=== PATIENT | male | born 1990 | race Caucasian/White ===

== ENCOUNTER 2022-10-23 12:05 | Emergency (ER) | payer OTHER, SELFPAY ==
[2022-10-23] VITALS (22 sets, daily range): BP systolic 132–152; BP diastolic 75–92; PULSE 104–118; RESP 14–18; TEMP 37.7; O2SAT 95–99; BMI 27.5
[2022-10-23 13:16] LABS: Appearance Urine Clear (Clear); Bilirubin Urine 1+ (Negative); Blood Urine Negative (Negative); Color Urine Yellow (Yellow); Glucose Urine Negative (Negative); Ketones Urine 2+ (Negative); Leukocyte Esterase Urine Negative (Negative); Nitrite Urine Negative (Negative); Protein Urine Negative (Negative); Specific Gravity Urine 1.015 (1.000-1.030); Urobilinogen Urine 0.2 (0.2-1.0); pH Urine 5.5 (5.0-8.5)
[2022-10-23 13:23] LABS: RBC Urine 0-2 (0-2); WBC Urine 0-2 (0-5)
[2022-10-23] MEDS: 0.9 % SODIUM CHLORIDE 1000 ml 1,000 ML IV (13:25)
[2022-10-23 13:30] LABS: Lactate* 1.1 mmol/L (0.5-1.9)
[2022-10-23 13:35] LABS: Basophils Percent Auto 0.1 % (0.0-3.0); Eosinophils Percent Auto 0.2 % (0.0-7.0); Hematocrit 45.3 % (37.0-53.0); Hemoglobin* 15.6 gm/dL (13.5-17.5); Immature Granulocytes Pct Auto 0.6 %; Lymphocytes Percent Auto 3.3 % (20-44); Mean Corpuscular HGB Conc 34 gm/dL (32-36); Mean Corpuscular Hemoglobin 29 pg (26-34); Mean Corpuscular Volume 85 fL (80-100); Monocytes Percent Auto 2.5 % (0.0-11.0); Neutrophils Percent Auto 93.3 % (42.0-72.0); Platelet Count* 282 K/uL (140-440); RDW Coefficient of Variation % 11.7 % (11.5-15.5); Red Blood Count 5.31 m/uL (4.30-5.90); White Blood Count* 11.88 K/uL (4.50-11.00)
[2022-10-23 13:39] LABS: Slide Review Reflex No
[2022-10-23 14:06] LABS: Chloride* 98 mmol/L (96-114); Sodium* 133 mmol/L (135-149)
[2022-10-23 14:07] LABS: Albumin* 4.5 g/dL (3.3-5.0)
[2022-10-23 14:09] LABS: Blood Urea Nitrogen* 15 mg/dL (5-24); Carbon Dioxide* 25 mmol/L (20-32); Creatinine* 0.9 mg/dL (0.5-1.5); Est. Creatinine Clearance* 99.58; Estimated Glomerular Filt Rate 117 ml/min
[2022-10-23 14:10] LABS: Alkaline Phosphatase* 109 U/L (40-150); Aspartate Amino Transferase* 36 U/L (12-35); Bilirubin Direct* 0.4 mg/dL (0.0-0.5); Bilirubin Total* 0.7 mg/dL (0.1-1.5); Calcium* 9.1 mg/dL (8.4-10.6); Glucose* 92 mg/dL (60-115); Total Protein* 8.3 g/dL (6.0-8.3)
[2022-10-23 14:11] LABS: Alanine Aminotransferase* 52 U/L (4-50)
[2022-10-23 14:12] LABS: C Reactive Protein* 5.1 mg/dL (0.5-1.0)
[2022-10-23 14:18] LABS: SARS PCR* Negative SARS-CoV-2 (Negative)
--- NOTE | 2022-10-23 14:24 | CRLHL7_ITS ---
For Patients: As a result of the Century Cures Act, medical imaging exams and procedure reports are released immediately into your electronic medical record. You may view this report before your referring provider. If you have questions, please contact your health care provider. INDICATION: Pelvic pain and fever after vasectomy. TECHNIQUE: Axial images were obtained from the diaphragm to the pubic symphysis. Reformats were obtained in the coronal and sagittal plane. IV Contrast: 79 cc Isovue 370 Oral Contrast: None COMPARISON: None. FINDINGS: Lower chest: Basilar discoid atelectasis. Liver: Unremarkable. Normal in size and attenuation. No masses. Gallbladder and bile ducts: Unremarkable. No stones or inflammation. No biliary dilatation. Spleen: Unremarkable. Normal in size without mass. Pancreas: Unremarkable. No mass or inflammation. Adrenal glands: Unremarkable. No nodules. Kidneys: Symmetric renal enhancement without hydronephrosis. 14 millimeter cyst at the upper pole of the left kidney with a subcentimeter hypodense lesion at the mid left kidney which is too small for characterization. Vasculature: Unremarkable. GI tract: Unremarkable. No dilated bowel or focal inflammation. Unremarkable appendix. Pelvis: Unremarkable. Bones: Unremarkable for age. IMPRESSION: Unremarkable abdomen and pelvis CT. No findings to explain the patient`s pain. Please note that all CT scans at this facility use dose modulation, iterative reconstruction, and/or weight-based dosing when appropriate to reduce radiation dose to as low as reasonably achievable. Dictated by Kenneth Dawson MD @ 10/23/2022 3:56:19 PM (Electronically Signed)
--- NOTE | 2022-10-23 14:25 | CRLHL7_ITS ---
For Patients: As a result of the Cures Act, medical imaging exams and procedure reports are released immediately into your electronic medical record. You may view this report before your referring provider. If you have questions, please contact your health care provider. INDICATION: FEVER TECHNIQUE: Chest 2 views. COMPARISON: None. FINDINGS: Cardiovascular and mediastinum: Heart size and vasculature are normal in caliber and appearance. Mediastinum is within normal limits. Lungs and pleural spaces: Lungs are clear. No sign of infiltrate or mass. No sign of pleural effusion. No pneumothorax. Bones and soft tissues: No significant findings. IMPRESSION: Unremarkable chest. Dictated by: Kalyan Sal MD @ 10/23/2022 15:25:43 (Electronically Signed)
--- NOTE | 2022-10-23 15:41 | ED.GENADULT ---
HPI - General Adult General Date Seen: 10/23/22 Chief complaint: Fever Stated complaint: procedure 2 weeks ago - fever since then Time Seen by Provider: 10/23/22 12:37 Source: patient Mode of arrival: ambulatory Limitations: no limitations History of Present Illness HPI narrative: Patient is a 32-year-old male who underwent vasectomy 2 weeks ago on a Sunday. He says he had a little bit of a cough prior to having the procedure. A couple days after the procedure he developed fever which progressed to shaking chills within a couple days after that. He says he will get better for a day or so and then he will again developed fevers. He has had some suprapubic pain with radiation to the back. He has a little bit of dysuria as well. He does say that the surgical sites look fine and he has not had any testicular pain or swelling. He has not had any nausea or vomiting. The cough itself seems to be getting better. He has not had shortness of breath. Just continues to feel generally poorly. He has had to leave work several times as every time he goes back to work he seems to have regression back to fever and chills. His health is otherwise generally good. He quit smoking a couple of years ago, denies significant alcohol use or other substance use. Related Data Home Medications Medication Instructions Recorded Confirmed No Known Home Medications 10/23/22 10/23/22 Allergies Allergy/AdvReac Type Severity Reaction Status Date / Time No Known Drug Allergies Allergy Verified 10/23/22 14:50 Review of Systems Status of ROS: Reports: 10 or more systems reviewed and unremarkable except as noted in History and below PFSH PFS Social History Smoking Status: Former smoker Do you use any of these nicotine containing products: None Second hand tobacco smoke exposure: No How often do you have a drink containing alcohol: 2-3 times a week How many standard drinks containing alcohol do you have on a typical day: 7 to 9 How often do you have six or more drinks on one occasion: Weekly AUDIT-C Alcohol total score: 9 Non-prescribed substance use: marijuana (any form) Exam Narrative: Exam Narrative: Vital signs as noted above. In general, an alert, nontoxic, fatigued looking male. Head: Normocephalic, atraumatic. Eyes: Pupils are equal reactive. Extraocular movements are full. Conjunctivae are normal. ENT: Mucous membranes are moist. Throat is normal. Neck: Supple without lymphadenopathy. Heart: Tachycardic and regular. No murmur. Lungs: Clear bilaterally. No increased work of breathing, crackles or wheezes. No CVA tenderness. Abdomen: Soft, nondistended, mild suprapubic tenderness without rebound guarding or rigidity. : Incisions healed, no testicular tenderness, edema, erythema. Extremities: Well perfused. No edema. No calf tenderness. Pulses intact. Neurologic: Patient is alert and oriented to person and place. Speech is fluent. Face is symmetric. Moves all extremities equally. Affect: Normal. Skin: Warm and dry. Well perfused. Const: Vital Signs, click to edit/add: Vital Signs - 24 hr 10/23/22 12:13 10/23/22 13:12 10/23/22 13:45 Temperature 99.9 F H Pulse Rate 113 H Pulse Rate [Right Pulse Oximeter] 118 H Respiratory Rate 18 14 Blood Pressure Blood Pressure [Le ft Arm] 150/92 H Blood Pressure [Ri ght Upper Arm] 141/77 H Pulse Oximetry 95 97 99 Oxygen Delivery Me thod Room Air Room Air 10/23/22 13:46 10/23/22 14:00 10/23/22 14:02 Temperature Pulse Rate 115 H 110 H 111 H Pulse Rate [Right Pulse Oximeter] Respiratory Rate Blood Pressure 142/78 H 152/75 H Blood Pressure [Le ft Arm] Blood Pressure [Ri ght Upper Arm] Pulse Oximetry 98 97 97 Oxygen Delivery Me thod 10/23/22 14:15 10/23/22 14:30 10/23/22 14:32 Temperature Pulse Rate 115 H 117 H 112 H Pulse Rate [Right Pulse Oximeter] Respiratory Rate Blood Pressure 140/77 H Blood Pressure [Le ft Arm] Blood Pressure [Ri ght Upper Arm] Pulse Oximetry 95 96 96 Oxygen Delivery Me thod 10/23/22 15:13 10/23/22 15:15 10/23/22 15:18 Temperature Pulse Rate 113 H 111 H 112 H Pulse Rate [Right Pulse Oximeter] Respiratory Rate Blood Pressure 150/92 H Blood Pressure [Le ft Arm] Blood Pressure [Ri ght Upper Arm] Pulse Oximetry 97 97 97 Oxygen Delivery Me thod Documenting provider has reviewed patient's vital signs: yes Course Course Hospital Course: Following initial evaluation, patient did have labs drawn including blood culture, urine was obtained, an IV was established and he was given a L of normal saline. He was ultimately given a g of Tylenol as well. His labs overall were not terribly illuminating, his white blood cell count was mildly elevated at 11.9, his CRP was mildly elevated at 5, but urinalysis was completely normal. LFTs showed mildly elevated transaminases, nonspecific, other LFTs were normal. Lactate was normal at 1.1. COVID was negative. Metabolic panel was unrevealing. I suspected he might have a urinary tract infection but this ultimately did not proved to be the case as his urine is really entirely normal. There does not appear to be anything abnormal about the surgical site itself, and he does not have any abnormalities on exam, but given that he had some lower abdominal discomfort and symptoms of malaise and reported fevers have been ongoing for a couple weeks now, elected to do a CT scan of the abdomen with contrast, and I also did a chest x-ray. I did not see any significant findings on his abdominal CT or his chest x-ray, and in fact both are read as negative by Radiology as well. I have discussed with him at this point that I am not able to determine an exact cause for his symptoms. This may be because they are viral and an exact definitive cause is not evident at this time, or there may be an alternative causes which may require further investigation. He is nontoxic in appearance, vital signs are improved with fluids, and I think discharge is reasonable. I have suggested that he take a couple of days off of work, continue with hydration at home, ibuprofen or Tylenol as needed and we have made him a follow-up appointment in clinic in a couple of days for recheck. If at any point he feels he is significantly worsening he should come back to the emergency department. Discussed that this may be a dynamic process and that further evaluation may be necessary to determine a diagnosis. At this point there is no evidence of a clear postoperative infection, abscess, pneumonia, urinary tract infection, or other bacterial process. Vital Signs Vital signs: Initial Vital Signs Temperature 99.9 F H 10/23/22 12:13 Temperature Source Oral 10/23/22 12:13 Pulse Rate 118 H 10/23/22 12:13 Respiratory Rate 18 10/23/22 12:13 Blood Pressure 141/77 H 10/23/22 12:13 Blood Pressure Mean 98 10/23/22 12:13 Blood Pressure Position Sitting 10/23/22 12:13 Pulse Oximetry 95 10/23/22 12:13 Oxygen Delivery Method 10/23/22 12:13 Vital Signs Temperature 99.9 F H 10/23/22 12:13 Pulse Rate 118 H 10/23/22 12:13 Respiratory Rate 18 10/23/22 12:13 Blood Pressure 141/77 H 10/23/22 12:13 Pulse Oximetry 95 10/23/22 12:13 Oxygen Delivery Method 10/23/22 12:13 Temperature 99.9 F H 10/23/22 12:13 Pulse Rate 108 H 10/23/22 16:45 Respiratory Rate 14 10/23/22 13:12 Blood Pressure 132/87 10/23/22 16:31 Pulse Oximetry 96 10/23/22 16:45 Oxygen Delivery Method 10/23/22 13:12 Medical Decision Making Lab Data Labs: Lab Results 10/23/22 10/23/22 10/23/22 Range/Units 13:10 13:10 13:18 WBC 11.88 H (4.50-11.00) K/uL RBC 5.31 (4.30-5.90) m/uL Hgb 15.6 (13.5-17.5) gm/dL Hct 45.3 (37.0-53.0) % MCV 85 (80-100) fL MCH 29 (26-34) pg MCHC 34 (32-36) gm/dL RDW Coeff of [place]aked[place] 11.7 (11.5-15.5) % Plt Count 282 (140-440) K/uL Neut % (Auto) 93.3 H (42.0-72.0) % Lymph % (Auto) 3.3 L (20-44) % Pratt % (Auto) 2.5 (0.0-11.0) % Eos % (Auto) 0.2 (0.0-7.0) % Baso % (Auto) 0.1 (0.0-3.0) % Neut # (Auto) 11.10 H (1.7-7.0) K/uL Lymph # (Auto) 0.40 L (0.90-2.90) K/uL Pratt # (Auto) 0.30 (0.00-0.90) K/UL Eos # (Auto) 0.00 (0.00-0.50) K/uL Baso # (Auto) 0.00 (0.00-0.30) K/uL Sodium (135-149) mmol/L Potassium (3.6-5.1) mmol/L Chloride (96-114) mmol/L Carbon Dioxide (20-32) mmol/L BUN (5-24) mg/dL Creatinine (0.5-1.5) mg/dL Estimated Creat Clear Estimated GFR ml/min Glucose (60-115) mg/dL Lactate (0.5-1.9) mmol/L Calcium (8.4-10.6) mg/dL Total Bilirubin (0.1-1.5) mg/dL Direct Bilirubin (0.0-0.5) mg/dL AST (12-35) U/L ALT (4-50) U/L Alkaline Phosphatase (40-150) U/L C-Reactive Protein (0.5-1.0) mg/dL Total Protein (6.0-8.3) g/dL Albumin (3.3-5.0) g/dL Urine Color Yellow (Yellow) Urine Appearance Clear (Clear) Urine pH 5.5 (5.0-8.5) Ur Specific [place] 1.015 (1.000-1.030) Urine Protein Negative (Negative) Urine Glucose (UA) Negative (Negative) Urine Ketones 2+ A (Negative) Urine Blood Negative (Negative) Urine Nitrite Negative (Negative) Urine Bilirubin 1+ A (Negative) Urine Urobilinogen 0.2 (0.2-1.0) Ur Leukocyte Esterase Negative (Negative) Urine RBC 0-2 (0-2) Urine WBC 0-2 (0-5) Ur Squamous Epith Cells None (None-Few) Urine Bacteria None (None) SARS-CoV-2 (PCR) Negative SARS-CoV-2 (Negative) 10/23/22 10/23/22 10/23/22 Range/Units 13:18 13:18 13:18 WBC (4.50-11.00) K/uL RBC (4.30-5.90) m/uL Hgb (13.5-17.5) gm/dL Hct (37.0-53.0) % MCV (80-100) fL MCH (26-34) pg MCHC (32-36) gm/dL RDW Coeff of [place]aked[place] (11.5-15.5) % Plt Count (140-440) K/uL Neut % (Auto) (42.0-72.0) % Lymph % (Auto) (20-44) % Pratt % (Auto) (0.0-11.0) % Eos % (Auto) (0.0-7.0) % Baso % (Auto) (0.0-3.0) % Neut # (Auto) (1.7-7.0) K/uL Lymph # (Auto) (0.90-2.90) K/uL Pratt # (Auto) (0.00-0.90) K/UL Eos # (Auto) (0.00-0.50) K/uL Baso # (Auto) (0.00-0.30) K/uL Sodium 133 L (135-149) mmol/L Potassium 4.0 (3.6-5.1) mmol/L Chloride 98 (96-114) mmol/L Carbon Dioxide 25 (20-32) mmol/L BUN 15 (5-24) mg/dL Creatinine 0.9 (0.5-1.5) mg/dL Estimated Creat Clear 99.58 Estimated GFR 117 ml/min Glucose 92 (60-115) mg/dL Lactate 1.1 (0.5-1.9) mmol/L Calcium 9.1 (8.4-10.6) mg/dL Total Bilirubin 0.7 (0.1-1.5) mg/dL Direct Bilirubin 0.4 (0.0-0.5) mg/dL AST 36 H (12-35) U/L ALT 52 H (4-50) U/L Alkaline Phosphatase 109 (40-150) U/L C-Reactive Protein 5.1 H (0.5-1.0) mg/dL Total Protein 8.3 (6.0-8.3) g/dL Albumin 4.5 (3.3-5.0) g/dL Urine Color (Yellow) Urine Appearance (Clear) Urine pH (5.0-8.5) Ur Specific [place] (1.000-1.030) Urine Protein (Negative) Urine Glucose (UA) (Negative) Urine Ketones (Negative) Urine Blood (Negative) Urine Nitrite (Negative) Urine Bilirubin (Negative) Urine Urobilinogen (0.2-1.0) Ur Leukocyte Esterase (Negative) Urine RBC (0-2) Urine WBC (0-5) Ur Squamous Epith Cells (None-Few) Urine Bacteria (None) SARS-CoV-2 (PCR) (Negative) Discharge Plan Discharge Clinical Impression: Fever of unknown origin Patient Disposition: Home, Self-Care Condition: Improved Instructions: Fever in Adults (ED) Additional Instructions: Your workup here today does not reveal an obvious explanation for symptoms. There is not a clear infection, your labs are overall fairly normal and your CT scan and chest x-ray are normal. I would recommend that you stay home from work for the next couple of days, ibuprofen and Tylenol as needed, fluids, rest. Follow up in clinic in the next couple of days. Return to the emergency department at any time if you are significantly worsening. Your appointment is scheduled at the [facility] on 10/26 with a 12:45 appointment time. If you have any questions or need to reschedule, please call [phone]. [facility] [address] [place] [address] Prescriptions: No Action No Known Home Medications Follow Up/Referrals: Provider,Not a Local [Primary Care Provider] - Stand Alone Forms: [employer]th Info Instructions
[2022-10-23] MEDS: ACETAMINOPHEN 500 MG TABLET 1000 MG PO (15:50)
== END 2022-10-23 16:50 | disposition home or self-care (01) ==
PROVIDERS: Emergency Provider Emergency Medicine
DX: R50.9 Fever, unspecified (principal)
CPT/HCPCS: 36415; 71046; 74177; 80048; 80076; 81001; 83605; 85025; 86140; 87040; 87635; 99284; A9270; J7030; Q9967